=== PATIENT | female | born 1965 | race Caucasian/White ===

== ENCOUNTER 2025-04-17 20:54 | Inpatient (IN) | payer OTHER ==
[~2025-04-17] VITALS: Ht 154.9 cm; Wt 48.2 kg
--- NOTE | 2025-04-17 21:13 | ED.PDOC ---
History of Present Illness HPI Comments 60-year-old female who came to ER via EMS for back pains. For the 6 hours, she has been having constant, aching, right mid back pain, nonradiating. Denies any recent trauma or lifting heavy objects. Denies any nausea or vomiting. Denies any urinary symptoms Chief Complaint: Back Pain Time Seen by MD: 21:13 Reviewed Notes: Unit Operator Notes Allergies: Coded Allergies: Acetaminophen (Verified Allergy, Unknown, 04/17/25) Iodine (Verified Allergy, Unknown, 04/17/25) Morphine (Verified Allergy, Unknown, 04/17/25) Oxycodone (Verified Allergy, Unknown, 04/17/25) Home Meds Active Scripts Cyclobenzaprine Hcl (CYCLOBENZAPRINE HCL) 7.5 Mg Tab, 7.5 MG PO Q6HP PRN, #30 TAB Prov:AZAEL BOYER MD 04/17/25 Gabapentin (Once-Daily) (Gabapentin) 300 Mg Tab, 300 MG PO Q6HP PRN, #30 TAB Prov:AZAEL BOYER MD 04/17/25 Information Source: Patient, Emergency Med Personnel Mode of Arrival: EMS Severity: Moderate Timing: Hours Duration: Since onset Past Medical History PAST MEDICAL HISTORY: CVA (Right sided residuals), HTN Surgical History: Denies all surgeries FINANCE ASSOCIATE History: Denies all FINANCE ASSOCIATE Hx Family History Family History: Reviewed,noncontributory to illness Social History Smoker: Non-Smoker Alcohol: Denies ETOH Use Drugs: Denies Drug Use Lives In: Home Constitutional: denies: chills, diaphoresis, fatigue, fever, malaise, sweats, weakness, others EENTM: denies: blurred vision, double vision, ear bleeding, ear discharge, ear drainage, ear pain, ear ringing, eye pain, eye redness, hearing loss, mouth pain, mouth swelling, nasal discharge, nose bleeding, nose congestion, nose pain, photophobia, tearing, throat pain, throat swelling, voice changes, others Respiratory: denies: cough, hemoptysis, orthopnea, SOB at rest, shortness of breath, SOB with excertion, stridor, wheezing, others Cardiovascular: denies: chest pain, dizzy spells, diaphoresis, Dyspnea on exertion, edema, irregular heart beat, left arm pain, lightheadedness, palpitations, PND, syncope, others Gastrointestinal: denies: abdomen distended, abdominal pain, blood streaked bowels, constipated, diarrhea, dysphagia, difficulty swallowing, hematemesis, melena, nausea, poor appetite, poor fluid intake, rectal bleeding, rectal pain, vomiting, others Genitourinary: denies: abnormal vagina bleeding, burning, dyspareunia, dysuria, flank pain, frequency, hematuria, incontinence, pain, , vagina dischar ge, urgency, others Neurological: denies: dizziness, fainting, headache, left sided numbness, left sided weakness, numbness, paresthesia, pre-existing deficit, right sided numbness, right sided weakness, seizure, speech problems, tingling, tremors, weakness, others Musculoskeletal: reports: back pain; denies: gout, joint pain, joint swelling, muscle pain, muscle stiffness, neck pain, others Integumetry: denies: bruises, change in color, change in hair/nails, dryness, laceration, lesions, lumps, rash, wounds, others Allergic/Immunocompromised: denies: Difficulty Healing, Frequent Infections, Hives, Itching, others Hematologic/Lymphatic: denies: anemia, blood clots, easy bleeding, easy bruising, swollen glands, others Endocrine: denies: excessive hunger, excessive sweating, excessive thirst, excessive urination, flushing, intolerance to cold, intolerance to heat, unexplained weight gain, unexplained weight loss, others Psychiatric: denies: anxiety, bipolar disorder, depression, hopeless, panic disorder, schizophrenia, sleepless, suicidal, others Physical Exam General Appearance: No Apparent Distress, Normal HEENT: Normal ENT Inspection, Pharynx Normal, TMs Normal Neck: Full Range of Motion, Non-Tender, Normal, Normal Inspection Respiratory: Chest Non-Tender, Lungs Clear, No Accessory Muscle Use, No Respiratory Distress, Normal Breath Sounds Cardiovascular: No Edema, No JVD, No Murmur, No Gallop, Normal Peripheral Pulses, Regular Rate/Rhythm Breast Exam: Deferred Gastrointestinal: No Organomegaly, Non Tender, No Pulsatile Mass, Normal Bowel Sounds, Soft Genitalia: Deferred Pelvic: Deferred Rectal: Deferred Extremities: No calf tenderness, Normal capillary refill, Normal inspection, Normal range of motion, Non-tender, No pedal edema Musculoskeletal : Apperance: Normal Neurologic: Alert, marketing campaign analyst II-XII nml as Tested, No Motor Deficits, Normal Affect, Normal Mood, No Sensory Deficits Cerebellar Function: Normal Reflexes: Normal Skin: Dry, Normal Color, Warm Lymphatic: No Adenopathy Was a procedure done? Was a procedure done?: No Differential Dx Considerations may include: Musculoskeletal pain, lumbosacral strain, urinary tract infection, kidney stones X-Ray, Labs, Meds, VS Vital Signs Date Time Temp Pulse Resp B/P (MAP) Pulse Ox O2 Delivery O2 Flow Rate FiO2 04/17/25 20:58 97.5 81 16 158/88 (111) 98 97.5 Lab Test 04/17/25 21:16 Range/Units White Blood Count 6.5 4.4-10.8 10^3/uL Red Blood Count 4.77 4.0-5.20 10^6/uL Hemoglobin 13.9 12.2-16.2 g/dL Hematocrit 39.9 36.0-46.0 % Mean Corpuscular Volume 83.7 80.0-100.0 fL Mean Corpuscular Hemoglobin 29.1 28.0-32.0 pg Mean Corpuscular Hemoglobin Concent 34.8 32.0-36.0 g/dL Red Cell Distribution Width 14.3 11.8-14.3 % Platelet Count 396 140-450 10^3/uL Mean Platelet Volume 6.0 L 6.9-10.8 fL Neutrophils (%) (Auto) 59.0 37.0-80.0 % Lymphocytes (%) (Auto) 29.9 10.0-50.0 % Monocytes (%) (Auto) 6.5 0.0-12.0 % Eosinophils (%) (Auto) 3.9 0.0-7.0 % Basophils (%) (Auto) 0.7 0.0-2.0 % Neutrophils # (Auto) 3.8 1.6-8.6 10 ^3/uL Lymphocytes # (Auto) 1.9 0.4-5.4 10 ^3/uL Monocytes # (Auto) 0.4 0-1.3 10 ^3/uL Eosinophils # (Auto) 0.3 0-0.8 10 ^3/uL Basophils # (Auto) 0 0-0.2 10 ^3/uL Nucleated Red Blood Cells 0.1 % D-Dimer, Quantitative 0.48 0.0-0.49 mg/L FEU Sodium Level 143 136-145 mmol/L Potassium Level 4.1 3.5-5.1 mmol/L Chloride Level 109 H 98-107 mmol/L Carbon Dioxide Level 23 20-31 mmol/L Anion Gap 11 5-15 Blood Urea Nitrogen 11 9-23 mg/dL Creatinine 0.72 0.550-1.02 mg/dL Glomerular Filtration Rate Calc 96 >90 mL/min BUN/Creatinine Ratio 15.3 10.0-20.0 Serum Glucose 90 74-106 mg/dL Calcium Level 10.2 8.7-10.4 mg/dL Total Bilirubin 0.5 0.2-1.0 mg/dL Aspartate Amino Transferase (AST) 17 13-40 U/L Alanine Aminotransferase (ALT) 19 7-40 U/L Alkaline Phosphatase 77 46-116 U/L Troponin I High Sensitivity < 3 L </=34 ng/L Total Protein 7.3 5.7-8.2 g/dL Albumin 4.6 3.2-4.8 g/dL Time of 1ST Reevaluation: 21:07 Reevaluation 1ST: Unchanged Patient Education/Counseling: Diagnosis, Treatment Family Education/Counseling: No Family Present Departure 1 Departure Time of Disposition: 23:44 Impression: Primary Impression: Acute thoracic back pain Additional Impressions: Acute coronary syndrome Chest pain Disposition: 09 ADMITTED INPATIENT Admit to: Tele Condition: Guarded e-Prescriptions Cyclobenzaprine Hcl (CYCLOBENZAPRINE HCL) 7.5 Mg Tab 7.5 MG PO Q6HP PRN, #30 TAB Prov: AZAEL BOYER MD 04/17/25 Gabapentin (Once-Daily) (Gabapentin) 300 Mg Tab 300 MG PO Q6HP PRN, #30 TAB Prov: AZAEL BOYER MD 04/17/25 Discharged With: Self Comments Right-sided Chest and Back Pain Chief Complaint: Right-sided chest and mid-back pain History of Present Illness: Patient is a 51-year-old female who presents via EMS with a chief complaint of right-sided chest and mid-back pain ongoing for approximately 6 hours prior to arrival. The pain onset was unprovoked. Patient describes the pain as deep, affecting both her chest and back regions. She specifically notes that the pain doesn't feel musculoskeletal in nature. Given her risk factors including hypertension and history of stroke, there is concern for acute coronary syndrome. Review of Systems: Limited review of systems due to acute presentation. Cardiovascular: Positive for chest pain Musculoskeletal: Positive for back pain All other systems reviewed and negative Medications: No current medications documented Allergies: No known allergies documented Past Medical History: 1. Hypertension 2. Previous stroke without significant residual deficits Lab Results: 1. Troponin: <3 2. Chemistry panel: Within normal limits 3. CBC: Within normal limits 4. D-dimer: Within normal limits Imaging and Other Relevant Results: Chest X-ray: No acute pathology, no infiltrates, no pneumothorax Medical Decision Making: Summary Statement: 51-year-old female with hypertension and previous stroke presenting with acute onset chest and back pain concerning for acute coronary syndrome. Problem List: 1. Acute chest pain 2. Back pain 3. Hypertension 4. History of stroke Differential Diagnosis: 1. Acute coronary syndrome 2. Pulmonary embolism 3. Aortic dissection 4. Musculoskeletal pain 5. Acute coronary syndrome ED Course: Patient received initial workup including cardiac enzymes, basic labs, chest X-ray, and D-dimer. Given ongoing pain and risk factors, decision made to admit for acute coronary syndrome evaluation. Treatment included aspirin, morphine for pain control, and Zofran. Assessment and Plan: 1. Acute chest pain: - High concern for acute coronary syndrome given risk factors - Initial cardiac workup initiated in ED - Admit to hospital for further evaluation and management - Initiated on aspirin - Pain control with morphine 2. Hypertension: - Chronic condition - Continue home medications 3. History of stroke: - No acute concerns - Risk factor for current presentation Billing Information: ICD-10: R07.89 - Other chest pain ICD-10: M54.9 - Dorsalgia, unspecified ICD-10: I10 - Essential (primary) hypertension ICD-10: Z86.73 - Personal history of transient ischemic attack (TIA), and cerebral infarction without residual deficits Critical Care Note Critical Care Time?: Yes (35 min-critical care time only) Critical care comment: Total critical care time: Approximately 36 minutes Due to a high probability of clinically significant, life threatening deterioration, the patient required my highest level of preparedness to intervene emergently and I personally spent this critical care time directly and personally managing the patient. This critical care time included obtaining a history; examining the patient; pulse oximetry; ordering and review of studies; arranging urgent treatment with development of a management plan; evaluation of patient's response to treatment; frequent reassessment; and, discussions with other providers. This critical care time was performed to assess and manage the high probability of imminent, life-threatening deterioration that could result in multi-organ failure. It was exclusive of separately billable procedures and treating other patients. Stability Stability form required: No Heart Score Heart Score: Heart Score Response (Comments) Value History Moderate Suspicious 1 EKG Repolarization Disturb 1 Age 45-64 1 Risk Factors 1 or 2 risk factors 1 Troponin Normal limit 0 Total 4 I personally scribed for AZAEL BOYER MD ([email or web address]) on 04/17/25 at 21:13. Electronically submitted by Andrea Haddad ([email or web address]). AZAEL BOYER MD Apr 17, 2025 21:13
[2025-04-17 21:24] LABS: Basophils # (auto) 0 10 ^3/uL (0-0.2); Basophils % (auto) 0.7 % (0.0-2.0); Eosinophils # (auto) 0.3 10 ^3/uL (0-0.8); Eosinophils % (auto) 3.9 % (0.0-7.0); Hematocrit 39.9 % (36.0-46.0); Hemoglobin 13.9 g/dL (12.2-16.2); Lymphocytes # (auto) 1.9 10 ^3/uL (0.4-5.4); Lymphocytes % (auto) 29.9 % (10.0-50.0); Mean Corpuscular Hemoglobin 29.1 pg (28.0-32.0); Mean Corpuscular Hgb Conc. 34.8 g/dL (32.0-36.0); Mean Corpuscular Volume 83.7 fL (80.0-100.0); Monocytes # (auto) 0.4 10 ^3/uL (0-1.3); Monocytes % (auto) 6.5 % (0.0-12.0); Neutrophils # (auto) 3.8 10 ^3/uL (1.6-8.6); Nucleated Red Blood Cells % 0.1 %; Platelet Count (auto) 396 10^3/uL (140-450); Red Blood Cells 4.77 10^6/uL (4.0-5.20); Red Cell Distribution Width 14.3 % (11.8-14.3); White Blood Cell 6.5 10^3/uL (4.4-10.8)
[2025-04-17 21:41] LABS: Alanine Aminotransferase 19 U/L (7-40); Albumin 4.6 g/dL (3.2-4.8); Alkaline Phosphatase 77 U/L (46-116); Anion Gap 11 (5-15); Aspartate Aminotransferase 17 U/L (13-40); BUN/Creatinine Ratio 15.3 (10.0-20.0); Blood Urea Nitrogen 11 mg/dL (9-23); Calcium 10.2 mg/dL (8.7-10.4); Carbon Dioxide 23 mmol/L (20-31); Glucose 90 mg/dL (74-106); Potassium 4.1 mmol/L (3.5-5.1); Sodium 143 mmol/L (136-145); Total Protein 7.3 g/dL (5.7-8.2)
[2025-04-17 21:42] LABS: Bilirubin, Total 0.5 mg/dL (0.2-1.0)
[2025-04-17 21:45] LABS: Chloride 109 mmol/L (98-107)
--- NOTE | 2025-04-17 22:16 | DVH ---
CHEST RADIOGRAPH Indication: chest pain Technique: Single frontal view of the chest was obtained Comparison: None FINDINGS: Lines and Tubes: None Lungs: Clear Pleura: No effusion. No pneumothorax. Cardiomediastinal contours: Unremarkable Bones: Unremarkable IMPRESSION: Clear lungs.
[2025-04-17] MEDS ORDERED: GABA300T4 PO (22:44)
[2025-04-17] MEDS ORDERED: CYCL-838 PO (22:45)
[2025-04-18] VITALS (8 sets, daily range): BP systolic 112–151; BP diastolic 69–86; PULSE 65–87; RESP 16–20; TEMP 97.4–98.3; O2SAT 96–100
[2025-04-18] MEDS: ASPirin 81 mg TAB PO ONE
[2025-04-18] MEDS ORDERED: DOCUSATE SOD 100 MG CAP PO PRN (00:45)
[2025-04-18] MEDS ORDERED: NITROGLYCERIN 0.4 MG SL TAB SL PRN (00:45)
--- NOTE | 2025-04-18 00:57 | DVHHP2 ---
History of Present Illness Reason for Visit: Back pain History of Present Illness The patient is a 60 year female with past medical history of CVA with right- sided deficit and hypertension who presented to [facility] ED with complaint of back pain. Patient reports she has been experiencing constant right mid back pain, constant, aching, nonradiating chest pain, rating 7/10 numeric scale, getting worse that prompted this visit. Patient was seen and evaluated in the ED, laboratory data shows WBC 6.5, platelets 396, sodium 143, potassium 4.1, BUN 11, creatinine 0.72, glucose 90, troponin < 3. Please see medication orders section in the computer. On my assessment, patient denied chest pain at this moment, no headache, no dizziness, no diaphoresis, no shortness of breath, no nausea, no vomiting, no fever, no chills. Patient was admitted for further evaluation and medical management. Past Medical History CVA (Right sided residuals), HTN Past Surgical History Denies all surgeries Family History Reviewed, noncontributory to the management of this case. Past Social History The patient lives at home, denies smoking, alcohol or illicit drugs abuse. Review of Systems Constitutional: Yes: Weakness; No: Fever, Chills, Sweats, Malaise, Other Eyes: No: Pain, Vision change, Conjunctivae inflammation, Eyelid inflammation, Other, Redness ENT: No: Ear pain, Ear discharge, Nose pain, Nose discharge, Nose congestion, Mouth pain, Mouth swelling, Throat pain, Throat swelling, Other Respiratory: No: Cough, Dry, Shortness of breath, SOB with excertion, Wheezing, Hemoptysis, Pleuritic Pain, Sputum, Wheezing, Other Cardiovascular: Chest Pain; No: Palpitations, Orthopnea, Paroxysmal Noc. Dyspnea, Edema, Lt Headedness, Other Gastrointestinal: No: Nausea, Vomiting, Abdominal Pain, Diarrhea, Constipation, Melena, Hematochezia, Other Genitourinary: No Dysuria, No Frequency, No Incontinence, No Hematuria, No Retention, No Other Musculoskeletal: back pain; No: other, neck pain, shoulder pain, arm pain, hand pain, leg pain, foot pain Skin: No: Rash, Lesions, Jaundice, Bruising, Other Neurological: Weakness (Right-sided); No: Numbness, Incoordination, Change in speech, Confusion, Seizures, Other Allergies: Coded Allergies: Acetaminophen (Verified Allergy, Unknown, 6/7/25) Iodine (Verified Allergy, Unknown, 04/17/25) Morphine (Verified Allergy, Unknown, 04/17/25) Oxycodone (Verified Allergy, Unknown, 04/17/25) Exam Vital Signs Vital Signs Date Time Temp Pulse Resp B/P (MAP) Pulse Ox O2 Delivery O2 Flow Rate FiO2 04/17/25 20:58 97.5 81 16 158/88 (111) 98 97.5 General Appearance: Alert, Oriented X3, Cooperative, No acute distress HEENT: Atraumatic, PERRLA, EOMI, Mucous membr. moist/pink Respiratory: Clear to auscultation, Normal air movement Cardiovascular: Regular rate, Normal S1, Normal S2, No murmurs Abdominal: Normal bowel sounds, Soft, No tenderness, No hepatospenomegaly, No masses Extremities: No clubbing, No cyanosis, No edema, Normal pulses, No tenderness/swelling Skin: No rashes, No breakdown, No significant lesion Neuro: Normal speech, Normal tone, Sensation intact, Cranial nerves 3-12 NL, R eflexes 2+, Other (Right-sided weakness) Psych/Mental Status: Mental status NL, Mood NL Labs/Xrays Labs Test 04/17/25 21:16 Range/Units White Blood Count 6.5 4.4-10.8 10^3/uL Red Blood Count 4.77 4.0-5.20 10^6/uL Hemoglobin 13.9 12.2-16.2 g/dL Hematocrit 39.9 36.0-46.0 % Mean Corpuscular Volume 83.7 80.0-100.0 fL Mean Corpuscular Hemoglobin 29.1 28.0-32.0 pg Mean Corpuscular Hemoglobin Concent 34.8 32.0-36.0 g/dL Red Cell Distribution Width 14.3 11.8-14.3 % Platelet Count 396 140-450 10^3/uL Mean Platelet Volume 6.0 L 6.9-10.8 fL Neutrophils (%) (Auto) 59.0 37.0-80.0 % Lymphocytes (%) (Auto) 29.9 10.0-50.0 % Monocytes (%) (Auto) 6.5 0.0-12.0 % Eosinophils (%) (Auto) 3.9 0.0-7.0 % Basophils (%) (Auto) 0.7 0.0-2.0 % Neutrophils # (Auto) 3.8 1.6-8.6 10 ^3/uL Lymphocytes # (Auto) 1.9 0.4-5.4 10 ^3/uL Monocytes # (Auto) 0.4 0-1.3 10 ^3/uL Eosinophils # (Auto) 0.3 0-0.8 10 ^3/uL Basophils # (Auto) 0 0-0.2 10 ^3/uL Nucleated Red Blood Cells 0.1 % D-Dimer, Quantitative 0.48 0.0-0.49 mg/L FEU Sodium Level 143 136-145 mmol/L Potassium Level 4.1 3.5-5.1 mmol/L Chloride Level 109 H 98-107 mmol/L Carbon Dioxide Level 23 20-31 mmol/L Anion Gap 11 5-15 Blood Urea Nitrogen 11 9-23 mg/dL Creatinine 0.72 0.550-1.02 mg/dL Glomerular Filtration Rate Calc 96 >90 mL/min BUN/Creatinine Ratio 15.3 10.0-20.0 Serum Glucose 90 74-106 mg/dL Calcium Level 10.2 8.7-10.4 mg/dL Total Bilirubin 0.5 0.2-1.0 mg/dL Aspartate Amino Transferase (AST) 17 13-40 U/L Alanine Aminotransferase (ALT) 19 7-40 U/L Alkaline Phosphatase 77 46-116 U/L Troponin I High Sensitivity < 3 L </=34 ng/L Total Protein 7.3 5.7-8.2 g/dL Albumin 4.6 3.2-4.8 g/dL PATIENT: TAYLOR GRAY ACCT: [id number] UNIT: [id number] : 1965 LOC: ER ROOM / BED: / AGE / SEX: 60 / F ADM STATUS: REG ER SERVICE 05 ORDERING PHYSICIAN: AZAEL BOYER MD PROCEDURE(s): CXRP - CHEST PORTABLE REASON: chest pain ORDER NUMBER(s): [id number], ACCESSION NUMBER(s): [id number] CHEST RADIOGRAPH Indication: chest pain Technique: Single frontal view of the chest was obtained Comparison: None FINDINGS: Lines and Tubes: None Lungs: Clear Pleura: No effusion. No pneumothorax. Cardiomediastinal contours: Unremarkable Bones: Unremarkable IMPRESSION: Clear lungs. Assessment/Plan Assessment/Plan Acute thoracic back pain Acute coronary syndrome Generalized weakness Plan 1. Admit to med surge unit 2. Breathing treatment 3. Pain control management 4. Management of fluids and electrolytes 5. Consultation for hospitalist 6. Diagnostic tests chest x-ray 7. DVT prophylaxis-on aspirin 8. Repeat labs CBC, CMP in a.m. 9. Continue with current medical management 10. Treatment plan discussed with patient and RN. Patient verbalized understanding. Plan discussed with: Patient, Other (RN) Problem List: (1) Acute thoracic back pain (2) Acute coronary syndrome (3) Generalized weakness Date of Service: Apr 18, 2025 Billing Provider: ARLEEN MATHIAS DNP Common Visit Codes: [id number] INP/OBS CARE (MOD) ARLEEN MATHIAS DNP Apr 18, 2025 00:57
[2025-04-18] MEDS ORDERED: MORPHINE SULFATE 4 MG/ML SYR/VIAL IV PRN (01:00)
[2025-04-18] MEDS: IBUPROFEN 600 MG TAB PO PRN (01:23)
[2025-04-18] MEDS: hydrALAZINE HCL 20 MG/ML VL IV PRN (02:27)
[2025-04-18 06:16] LABS: Basophils # (auto) 0.1 10 ^3/uL (0-0.2); Basophils % (auto) 1.2 % (0.0-2.0); Eosinophils # (auto) 0.3 10 ^3/uL (0-0.8); Eosinophils % (auto) 6.7 % (0.0-7.0); Hemoglobin 13.5 g/dL (12.2-16.2); Lymphocytes # (auto) 1.2 10 ^3/uL (0.4-5.4); Lymphocytes % (auto) 24.3 % (10.0-50.0); Mean Corpuscular Hemoglobin 28.9 pg (28.0-32.0); Mean Corpuscular Hgb Conc. 34.6 g/dL (32.0-36.0); Mean Corpuscular Volume 83.6 fL (80.0-100.0); Monocytes # (auto) 0.4 10 ^3/uL (0-1.3); Monocytes % (auto) 8.7 % (0.0-12.0); Neutrophils # (auto) 2.9 10 ^3/uL (1.6-8.6); Neutrophils % (auto) 59.1 % (37.0-80.0); Nucleated Red Blood Cells % 0.1 %; Platelet Count (auto) 372 10^3/uL (140-450); Red Blood Cells 4.67 10^6/uL (4.0-5.20); Red Cell Distribution Width 13.9 % (11.8-14.3); White Blood Cell 4.9 10^3/uL (4.4-10.8)
[2025-04-18 06:26] LABS: Alanine Aminotransferase 17 U/L (7-40); Albumin 4.2 g/dL (3.2-4.8); Alkaline Phosphatase 75 U/L (46-116); Anion Gap 10 (5-15); BUN/Creatinine Ratio 16.9 (10.0-20.0); Blood Urea Nitrogen 11 mg/dL (9-23); Calcium 9.8 mg/dL (8.7-10.4); Carbon Dioxide 24 mmol/L (20-31); Glucose 96 mg/dL (74-106); Potassium 3.7 mmol/L (3.5-5.1); Sodium 143 mmol/L (136-145); Total Protein 6.7 g/dL (5.7-8.2)
[2025-04-18 06:27] LABS: Aspartate Aminotransferase 15 U/L (13-40); Bilirubin, Total 0.9 mg/dL (0.2-1.0)
[2025-04-18 06:30] LABS: Chloride 109 mmol/L (98-107)
[2025-04-18] MEDS: GABAPENTIN 300 MG CAP PO SCH (07:05)
[2025-04-18] MEDS: KETOROLAC TROMETH 30 MG/ML 1ML VIAL IV ONE (07:35)
[2025-04-18] MEDS: ASPirin 81 mg TAB PO SCH (10:08)
[2025-04-18] MEDS: HYDROmorphone HCL 2 MG/ML VL/or syr IV PRN (17:34)
[2025-04-19] VITALS (7 sets, daily range): BP systolic 103–159; BP diastolic 72–83; PULSE 69–109; RESP 17–19; TEMP 97.6–98.9; O2SAT 94–100
[2025-04-19] MEDS: ONDANSETRON HCL 4 MG/2 ML VIAL IV PRN (00:22)
[2025-04-19 06:40] LABS: Basophils # (auto) 0.1 10 ^3/uL (0-0.2); Basophils % (auto) 0.6 % (0.0-2.0); Eosinophils # (auto) 0.1 10 ^3/uL (0-0.8); Eosinophils % (auto) 0.8 % (0.0-7.0); Hematocrit 41.2 % (36.0-46.0); Lymphocytes # (auto) 1.1 10 ^3/uL (0.4-5.4); Lymphocytes % (auto) 13.8 % (10.0-50.0); Mean Corpuscular Hemoglobin 29.1 pg (28.0-32.0); Mean Corpuscular Volume 85.6 fL (80.0-100.0); Monocytes # (auto) 0.4 10 ^3/uL (0-1.3); Monocytes % (auto) 4.9 % (0.0-12.0); Neutrophils # (auto) 6.3 10 ^3/uL (1.6-8.6); Neutrophils % (auto) 79.9 % (37.0-80.0); Nucleated Red Blood Cells % 0.1 %; Platelet Count (auto) 382 10^3/uL (140-450); Red Blood Cells 4.81 10^6/uL (4.0-5.20); Red Cell Distribution Width 13.8 % (11.8-14.3); White Blood Cell 7.9 10^3/uL (4.4-10.8)
[2025-04-19 07:02] LABS: Alanine Aminotransferase 15 U/L (7-40); Albumin 4.3 g/dL (3.2-4.8); Alkaline Phosphatase 78 U/L (46-116); Anion Gap 9 (5-15); Aspartate Aminotransferase 15 U/L (13-40); Bilirubin, Total 0.9 mg/dL (0.2-1.0); Blood Urea Nitrogen 9 mg/dL (9-23); Calcium 10.2 mg/dL (8.7-10.4); Carbon Dioxide 24 mmol/L (20-31); Chloride 108 mmol/L (98-107); Glucose 110 mg/dL (74-106); Potassium 4.3 mmol/L (3.5-5.1); Sodium 141 mmol/L (136-145); Total Protein 7.1 g/dL (5.7-8.2)
--- NOTE | 2025-04-19 12:21 | ECG ---
[facility] Test Date: 2025-04-17 Test Time: 21:08:14 Pat Name: NITIN GRAY Department: ED Room: 0293 B Gender: F [employer]el[employer] Charger: : 1965 Requested By: AZAEL BOYER Order Number: [id number] Reading MD: Murray Moreno Measurements Intervals [place] Rate: 89 P: 79 MA: 169 QRS: 67 QRSD: 88 T: 64 QT: 368 QTc: 448 Interpretive Statements Sinus rhythm Consider left atrial enlargement Abnormal R-wave progression, early transition Artifact in lead(s) II,aVL,V1,V2,V3,V4,V5,V6 Electronically Signed On 04-21-2025 20:50:50 PDT by Murray Moreno Please click the below link to view image of tracing.
--- NOTE | 2025-04-19 16:50 | DVHPN2 ---
Subjective Patient is complaining of upper back pain and chest pain. Also complaining of headache. Patient is requesting nursing CT angio head and neck as she has a history of brain aneurysm. Reviewed: Care Plan Changes from previous H/P or p: No Changes Eyes: No Pain, No Vision change, No Conjunctivae inflammation, No Eyelid inflammation, No Other, No Redness ENT: No Ear pain, No Ear discharge, No Nose pain, No Nose discharge, No Nose congestion, No Mouth pain, No Mouth swelling, No Throat pain, No Throat swelling, No Other Cardiovascular: Chest Pain; No Palpitations, No Orthopnea, No Paroxysmal Noc. Dyspnea, No Edema, No Lt Headedness, No Other Respiratory: No Cough, No Dry, No Shortness of breath, No SOB with excertion, No Wheezing, No Hemoptysis, No Pleuritic Pain, No Sputum, No Other Gastrointestinal: No Nausea, No Vomiting, No Abdominal Pain, No Diarrhea, No Constipation, No Melena, No Hematochezia, No Other Genitourinary: No Dysuria, No Frequency, No Incontinence, No Hematuria, No Retention, No Other Musculoskeletal: No other, No neck pain, No shoulder pain, No arm pain; back pain; No hand pain, No leg pain, No foot pain Skin: No Rash, No Lesions, No Jaundice, No Bruising, No Other Objective Vitals Vital Signs Date Time Temp Pulse Resp B/P (MAP) Pulse Ox O2 Delivery O2 Flow Rate FiO2 04/19/25 16:00 98.2 04/19/25 14:27 151/83 04/19/25 13:14 74 17 04/19/25 12:51 99 04/19/25 08:22 Room Air* 0 21 Intake/Output Intake and Output 04/19/25 07:00 Intake Total 340 ml Balance 340 ml Intake Oral 340 ml Exam HEENT pupils are reactive Neck is supple CV is S1-S2 regular rate and rhythm Has been diminished breath sound bases GI posterior bowel sound Extremity no edema 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 Medications Current Medications Medications Dose Ordered Sig/Chacorta Route Start Time Stop Time Status Last Admin Dose Admin Aspirin 81 mg DAILY PO 04/18/25 10:00 04/19/25 09:08 81 MG Gabapentin 300 mg TID PO 04/18/25 06:00 04/19/25 14:23 300 MG Ondansetron HCl 4 mg Q4HP PRN IV 04/18/25 00:45 04/19/25 13:10 4 MG Docusate Sodium 100 mg BIDPRN PRN PO 04/18/25 00:45 Nitroglycerin 0.4 mg Q5MINP PRN SL 04/18/25 00:45 Morphine Sulfate 2 mg Q30M PRN IV 04/18/25 01:00 Ibuprofen 600 mg Q6HP PRN PO 04/18/25 00:45 04/19/25 16:00 600 MG Hydralazine HCl 10 mg Q6HP PRN IV 04/18/25 01:00 04/19/25 14:27 10 MG Hydromorphone HCl 0.3 mg Q4HPRN PRN IV 04/18/25 16:00 04/19/25 13:14 0.3 MG Laboratory Results Laboratory Tests 04/19/25 06:01 Chemistry Test 04/19/25 06:01 Albumin 4.3 g/dL (3.2-4.8) Calcium Level 10.2 mg/dL (8.7-10.4) Total Protein 7.1 g/dL (5.7-8.2) LFT Test 04/19/25 06:01 Alanine Aminotransferase (ALT) 15 U/L (7-40) Alkaline Phosphatase 78 U/L (46-116) Aspartate Amino Transferase (AST) 15 U/L (13-40) Total Bilirubin 0.9 mg/dL (0.2-1.0) Assessment/Plan Assessment/Plan 60-year-old female with a known history of hypertension, previous history of CVA, chronic upper back pain presented to the hospital with back pain found to have 1.Acute on chronic back pain 2. Hypertension 3. History of CVA with the right-sided residual deficit 4. Headache 5. Peripheral neuropathy 6. History of brain aneurysm -patient is allergic to morphine [place] Percocet, okay with Dilaudid IV p.r.n.. Add ibuprofen after meals. -CT angio head and neck. Plan discussed with: Patient My Orders Orders - FRANKIE JUNIOR MD Procedure Category Date Status Time Communication Order ORDERS 04/18/25 Transmitted 18:36 Date of Service: Apr 19, 2025 Billing Provider: FRAKNIE JUNIOR MD Common Visit Codes: [id number] INP/OBS CARE(MOD) FRANKIE JUNIOR MD Apr 19, 2025 16:50
--- NOTE | 2025-04-19 21:11 | DVH ---
Carotid Duplex Date: 04/19/2025 05:37 PM Clinical History: HISTORY OF ANEURYSM Comparison: None Technique: Duplex Doppler evaluation of the extracranial carotid and vertebral arteries including col or Doppler and spectral/pulsed waveform analysis was performed. Findings: RIGHT SIDE: The peak systolic velocities are 86 cm/s in the distal CCA and 82 cm/s in the proximal ICA.The ICA/CC A ratio is less than 2. The external carotid artery is patent with peak systolic velocity of 68 cm/s proximally. There is appropriate antegrade flow in the right vertebral artery. LEFT SIDE: The peak systolic velocities are 82 cm/s in the distal CCA and 163 cm/s in the proximal ICA.. The ICA /CCA ratio is 2.. The external carotid artery is patent with peak systolic velocity of 50-60% cm/s proximally. There is appropriate antegrade flow in the left vertebral artery. IMPRESSION: 1. No hemodynamically significant stenosis noted in the right carotid system. 2. 50-60% stenosis. 3. Reference: Radiology 2003; 229:340-346
[2025-04-20 05:00] VITALS: BP 134/88; PULSE 68; RESP 18; TEMP 97.6; O2SAT 99
[2025-04-20 09:00] VITALS: BP 132/71; PULSE 78; RESP 15; TEMP 98.8; O2SAT 96
[2025-04-20] MEDS: BENAZEPRIL HCL 10 MG TAB PO SCH (10:42)
--- NOTE | 2025-04-20 10:49 | DVH ---
EXAM: CT HEAD WITHOUT CONTRAST INDICATION: HISTORY OF ANEURYSM/STROKE TECHNIQUE: CT of the head without intravenous contrast. Radiation Dose : 1. Head: CT Dose: CTDI volume is 49.93 mGy. Dose-length product is 700.77 mGy*cm The dose indicators for CT are the volume Computed Tomography (CT) Dose Index (CTDIvol) and the Dose Length Product (DLP), and are measured in units of mGy and mGy-cm, respectively. These indicators are not patient dose, but values generated from the CT scanner acquisition factors. The report includes radiation exposure data for exposures received during this examination. COMPARISON: None FINDINGS: There is no evidence of acute intracranial hemorrhage, extra-axial collection, mass effect, midline s hift, herniation or hydrocephalus. The ventricles, sulci and cisterns are age appropriate. The dave-white differentiation is intact. Patchy periventricular and subcortical white matter hypoattenuation is nonspecific but may be related to small vessel ischemic disease. The visualized paranasal sinuses and mastoid air cells are clear. The surrounding soft tissues and osseous structures are unremarkable. IMPRESSION: 1. No acute intracranial abnormality. Radiation optimization: All CT scans at this facility use at least one of these dose optimization milvia hniques: automated exposure control mA and/or kV adjustment per patient size (includes targeted exam s where dose is matched to clinical indication) or iterative reconstruction.
[2025-04-20 12:39] VITALS: BP 128/62; PULSE 87; RESP 16; TEMP 98.2; O2SAT 96
[2025-04-20] MEDS ORDERED: IBUPROFEN 600 MG TAB PO PRN (14:45)
--- NOTE | 2025-04-20 16:37 | DVHPN2 ---
Subjective Patient is complaining of upper back pain and chest pain. Also complaining of headache. Patient is requesting nursing CT angio head and neck as she has a history of brain aneurysm. Reviewed: Care Plan Changes from previous H/P or p: No Changes Eyes: No Pain, No Vision change, No Conjunctivae inflammation, No Eyelid inflammation, No Other, No Redness ENT: No Ear pain, No Ear discharge, No Nose pain, No Nose discharge, No Nose congestion, No Mouth pain, No Mouth swelling, No Throat pain, No Throat swelling, No Other Cardiovascular: Chest Pain; No Palpitations, No Orthopnea, No Paroxysmal Noc. Dyspnea, No Edema, No Lt Headedness, No Other Respiratory: No Cough, No Dry, No Shortness of breath, No SOB with excertion, No Wheezing, No Hemoptysis, No Pleuritic Pain, No Sputum, No Other Gastrointestinal: No Nausea, No Vomiting, No Abdominal Pain, No Diarrhea, No Constipation, No Melena, No Hematochezia, No Other Genitourinary: No Dysuria, No Frequency, No Incontinence, No Hematuria, No Retention, No Other Musculoskeletal: No other, No neck pain, No shoulder pain, No arm pain; back pain; No hand pain, No leg pain, No foot pain Skin: No Rash, No Lesions, No Jaundice, No Bruising, No Other Objective Vitals Vital Signs Date Time Temp Pulse Resp B/P (MAP) Pulse Ox O2 Delivery O2 Flow Rate FiO2 04/20/25 14:07 87 16 128/62 04/20/25 12:39 98.2 96 98.2 04/20/25 08:05 Room Air* 0 21 Intake/Output Intake and Output 04/20/25 07:00 Intake Total 1092 ml Balance 1092 ml Intake Oral 1092 ml # Voids 3 Exam HEENT pupils are reactive Neck is supple CV is S1-S2 regular rate and rhythm Has been diminished breath sound bases GI posterior bowel sound Extremity no edema [employer] right-sided residual deficits Medications Current Medications Medications Dose Ordered Sig/Chacorta Route Start Time Stop Time Status Last Admin Dose Admin Aspirin 81 mg DAILY PO 04/18/25 10:00 04/20/25 10:41 81 MG Gabapentin 300 mg TID PO 04/18/25 06:00 04/20/25 14:02 300 MG Ondansetron HCl 4 mg Q4HP PRN IV 04/18/25 00:45 04/20/25 14:02 4 MG Docusate Sodium 100 mg BIDPRN PRN PO 04/18/25 00:45 Nitroglycerin 0.4 mg Q5MINP PRN SL 04/18/25 00:45 Morphine Sulfate 2 mg Q30M PRN IV 04/18/25 01:00 Hydralazine HCl 10 mg Q6HP PRN IV 04/18/25 01:00 04/19/25 14:27 10 MG Benazepril HCl 10 mg DAILY PO 04/20/25 10:00 04/20/25 10:42 10 MG Hydromorphone HCl 0.5 mg Q4HPRN PRN IV 04/20/25 18:10 Ibuprofen 800 mg Q6HP PRN PO 04/20/25 14:45 Enteral Nutritional Formula 240 ml TIDWM PO 04/20/25 18:00 Laboratory Results Laboratory Tests 04/19/25 06:01 Assessment/Plan Assessment/Plan 60-year-old female with a known history of hypertension, previous history of CVA, chronic upper back pain presented to the hospital with back pain found to have 1.Acute on chronic back pain 2. Hypertension 3. History of CVA with the right-sided residual deficit 4. Headache 5. Peripheral neuropathy 6. History of brain aneurysm -patient is allergic to morphine Alexander Percocet, okay with Dilaudid IV p.r.n.. Add ibuprofen after meals. -CT angio head and neck. Plan discussed with: Patient My Orders Orders - FRANKIE JUNIOR MD Procedure Category Date Status Time Carotid Duplx W Color US 04/19/25 Resulted DOP 17:21 Benazepril Hcl Tablet PHA 04/20/25 In Process (Lotensin Tablet) 10:[address] 04/20/25 Resulted 08:15 Hydromorphone PHA 04/20/25 In Process Injection (Dilaudid 18:10 Ibuprofen Tablet PHA 04/20/25 In Process (Motrin Tablet) 14:45 Angio Head/Neck CT 04/20/25 Logged 14:38 Nutritional PHA 04/20/25 In Process Supplements (Ensure 18:00 Date of Service: Apr 20, 2025 Billing Provider: FRANKIE JUNIOR MD Common Visit Codes: [id number] INP/OBS CARE(MOD) FRANKIE JUNIOR MD Apr 20, 2025 16:37
[2025-04-20 17:16] VITALS: BP 114/58; PULSE 86; RESP 16; TEMP 98.2; O2SAT 97
[2025-04-20] MEDS: Ensure HIGH Protein Chocolate 8oz Bottle PO SCH (18:07)
[2025-04-20] MEDS: HYDROmorphone HCL 2 MG/ML VL/or syr IV PRN (18:24)
[2025-04-20] MEDS: diphenhdrAMINE HCL 25 MG CAP PO PRN (18:44)
[2025-04-20 20:00] VITALS: PULSE 80; RESP 16; O2SAT 98
[2025-04-20 21:00] VITALS: BP 99/48; PULSE 81; RESP 18; TEMP 98.3; O2SAT 97
[2025-04-21 01:00] VITALS: BP 96/58; PULSE 67; RESP 18; TEMP 97.4; O2SAT 96
[2025-04-21 05:00] VITALS: BP 130/68; PULSE 83; RESP 19; TEMP 97.5; O2SAT 96
[2025-04-21 09:00] VITALS: BP 143/81; PULSE 77; RESP 16; TEMP 99; O2SAT 99
[2025-04-21] MEDS: diphenhdrAMINE HCL 25 MG CAP PO ONE (09:58)
[2025-04-21] MEDS: IOHEXOL 350 MG/ML 100ML IJ ONE (11:02)
--- NOTE | 2025-04-21 12:15 | DVH ---
INDICATION: RULE OUT BRAIN ANEURYSM EXAM DATE: 04/21/2025 10:58 AM COMPARISON: None TECHNIQUE: CTA head without and with intravenous contrast. CTA neck with intravenous contrast. 3D image postprocessing was performed on a dedicated workstation and images were used for interpretation and reporting. RADIATION DOSE: Brain: CTDIvol: 22.12 mGy, DLP: 747.48 mGy*cm Tracker: CTDIvol: 22.12 mGy, DLP: 747.48 mGy*cm Angio: CTDIvol: 22.12 mGy, DLP: 747.48 mGy*cm FINDINGS: CTA head: There is normal enhancement of the visualized distal internal carotid, anterior and middle cerebral a rteries. There is a normal anterior communicating artery complex. There are bilateral posterior com municating arteries. The vertebral, basilar, cerebellar and posterior cerebral arteries are within n ormal limits. The early parenchymal enhancement is grossly unremarkable. The visualized intracrania l venous structures are grossly unremarkable. CTA neck: The visualized thoracic aortic arch and proximal great vessels are unremarkable. The left common, in ternal and external carotid arteries are within normal limits. The right common, internal and emergency department manager al carotid arteries are within normal limits. The cervical segments of the right and left vertebral arteries are within normal limits. The limited visualized lung apices are clear. The surrounding so ft tissues and osseous structures are otherwise unremarkable. IMPRESSION: No evidence of hemodynamically significant intracranial stenosis, proximal occlusion or aneurysm. No evidence of hemodynamically significant cervical stenosis or dissection. CAROTID STENOSIS REFERENCE Distal internal carotid artery diameter as the denominator for stenosis measurement: MILD = <50% stenosis. MODERATE = 50-69% stenosis. SEVERE = 70-89% stenosis. CRITICAL = 90-99% stenosis. OCCLUDED = 100% stenosis.
[2025-04-21 13:00] VITALS: BP 101/64; PULSE 87; RESP 18; TEMP 98.4; O2SAT 95
[2025-04-21] MEDS ORDERED: HYDR2TAB58 PO (13:18)
[2025-04-21] MEDS ORDERED: NALO4SPR2 (13:21)
--- NOTE | 2025-04-21 16:15 | DVHDS2 ---
Discharge Summary Date of Admission Apr 18, 2025 at 00:43 Date of Discharge: Apr 21, 2025 Labs/Diagnostic Data: Laboratory Results Test 04/19/25 06:01 04/17/25 21:16 White Blood Count 7.9 10^3/uL (4.4-10.8) Red Blood Count 4.81 10^6/uL (4.0-5.20) Hemoglobin 14.0 g/dL (12.2-16.2) Hematocrit 41.2 % (36.0-46.0) Mean Corpuscular Volume 85.6 fL (80.0-100.0) Mean Corpuscular Hemoglobin 29.1 pg (28.0-32.0) Mean Corpuscular Hemoglobin Concent 34.0 g/dL (32.0-36.0) Red Cell Distribution Width 13.8 % (11.8-14.3) Platelet Count 382 10^3/uL (140-450) Mean Platelet Volume 6.3 fL (6.9-10.8) Neutrophils (%) (Auto) 79.9 % (37.0-80.0) Lymphocytes (%) (Auto) 13.8 % (10.0-50.0) Monocytes (%) (Auto) 4.9 % (0.0-12.0) Eosinophils (%) (Auto) 0.8 % (0.0-7.0) Basophils (%) (Auto) 0.6 % (0.0-2.0) Neutrophils # (Auto) 6.3 10 ^3/uL (1.6-8.6) Lymphocytes # (Auto) 1.1 10 ^3/uL (0.4-5.4) Monocytes # (Auto) 0.4 10 ^3/uL (0-1.3) Eosinophils # (Auto) 0.1 10 ^3/uL (0-0.8) Basophils # (Auto) 0.1 10 ^3/uL (0-0.2) Nucleated Red Blood Cells 0.1 % Sodium Level 141 mmol/L (136-145) Potassium Level 4.3 mmol/L (3.5-5.1) Chloride Level 108 mmol/L (98-107) Carbon Dioxide Level 24 mmol/L (20-31) Anion Gap 9 (5-15) Blood Urea Nitrogen 9 mg/dL (9-23) Creatinine 0.69 mg/dL (0.550-1.02) Glomerular Filtration Rate Calc 100 mL/min (>90) BUN/Creatinine Ratio 13.0 (10.0-20.0) Serum Glucose 110 mg/dL (74-106) Calcium Level 10.2 mg/dL (8.7-10.4) Total Bilirubin 0.9 mg/dL (0.2-1.0) Aspartate Amino Transferase (AST) 15 U/L (13-40) Alanine Aminotransferase (ALT) 15 U/L (7-40) Alkaline Phosphatase 78 U/L (46-116) Total Protein 7.1 g/dL (5.7-8.2) Albumin 4.3 g/dL (3.2-4.8) D-Dimer, Quantitative 0.48 mg/L FEU (0.0-0.49) Troponin I High Sensitivity < 3 ng/L (</=34) Other Laboratory Tests 04/19/25 06:01 Brief Hx & Hospital Course: 60-year-old female with a known history of hypertension, previous history of CVA, chronic upper back pain presented to the hospital with back pain found to have acute on chronic back pain. Patient also has a history of known CVA with right-sided residual deficit. Patient's pain was managed with IV Dilaudid as she is allergic to multiple medications. Also IV proven after meals were started. Today patient is feeling much better and she will participate with the physical therapy. Patient is being discharged under stable condition patient is requesting Dilaudid p.o. which will be prescribed. No driving, no signing legal documents, no playing on heavy machinery while on Dilaudid or other pain medications. Condition at Discharge: Stable Final Diagnosis/Problems List 60-year-old female with a known history of hypertension, previous history of CVA, chronic upper back pain presented to the hospital with back pain found to have 1.Acute on chronic back pain 2. Hypertension 3. History of CVA with the right-sided residual deficit 4. Headache 5. Peripheral neuropathy 6. History of brain aneurysm CT angio head and neck shows no evidence of any acute pathology Discharge Disposition: Home SNF Discharge Will this Physician continue t: No Discharge Instruct/Medications Diet: Cardiac 2g Na,low cholest Activity: See Comment Activity comment: No driving, no playing on heavy machinery, no signing legal documents while on Dilaudid and muscle relaxant and other pain meds. Follow Up/Referral: With the PCP in 1-2 weeks Medications: Resume home medications, Dilaudid as prescribed. Discharge Statement: "Patient was advised to return to the ER or call 911 if any headaches, dizziness, shortness of breath, chest pain, abdominal pain, bleeding, fevers, or worsening of medical condition. Patient was counseled about treatment plan, medications, possible side effects, patientverbalized understanding. All questions were answered to the best of my ability. This discharge took greater then 30 minutes in planning, reviewing documentation, counseling the patient, and discussing with other team members." ASSESSMENT ASSESSMENT Assessment 60-year-old female with a known history of hypertension, previous history of CVA, chronic upper back pain presented to the hospital with back pain found to have 1.Acute on chronic back pain 2. Hypertension 3. History of CVA with the right-sided residual deficit 4. Headache 5. Peripheral neuropathy 6. History of brain aneurysm CT angio head and neck shows no evidence of any acute pathology Date of Service: Apr 21, 2025 Billing Provider: FRANKIE JUNIOR MD Common Visit Codes: [id number]-AIT/OBS DISCH DAY >30min FRANKIE JUNIOR MD Apr 21, 2025 16:15
== END 2025-04-21 17:15 | disposition home or self-care (01) | DRG 861 ==
LOC: EDBD 20:54 → ER 20:54 → OVERFLOW 04-18 00:43 → WEST WING 04-18 00:48
PROVIDERS: ADMIT Internal Medicine; ATTEND Internal Medicine
DX: G89.29 Other chronic pain (principal); G62.9 Polyneuropathy, unspecified; M54.9 Dorsalgia, unspecified; I10 Essential (primary) hypertension; R51.9 Headache, unspecified; Z88.6 Allergy status to analgesic agent; Z88.5 Allergy status to narcotic agent; I69.30 Unspecified sequelae of cerebral infarction
CPT/HCPCS: 36415; 70450; 70496; 70498; 71045; 80053; 84484; 85025; 85379; 93005; 93886; 96374; 99291; G0378; J1885; J2405